=== PATIENT | male | born 1970 | race Caucasian/White ===

== ENCOUNTER → 2017-01-28 | Outpatient (CLI) | payer MEDICAID | LOC: FIMAGING 10:00 | PROVIDERS: ATTEND Psychiatry & Neurology Neurology | DX: Z85.840 Personal history of malignant neoplasm of eye (principal); Z90.01 Acquired absence of eye ==

== ENCOUNTER → 2017-02-13 | Outpatient (CLI) | payer MEDICAID ==
--- NOTE | 2017-02-16 10:28 | CPEEG ---
[f rep st] ELECTROENCEPHALOGRAM FOUR-HOUR VIDEO ELECTROENCEPHALOGRAM. DATE OF STUDY: 02/13/2017 DATE OF INTERPRETATION: 02/16/2017. INTERPRETATION: This 4-hour video EEG recording is normal. There were no potentially epileptogenic abnormalities present during the awake or sleep recordings. During the monitoring session, the pat ient did not have any clinical events. REPORT: This 4-hour video EEG contains 10 Hz alpha to the posterior head regions. There was no abn ormal activation at rest, during photic stimulation, or hyperventilation. The patient became drowsy and fell into sustained sleep during the study. There was no abnormal activation during drowsiness , sleep, or during times of arousal. The patient did not have any clinical events during the video EEG monitoring session. /[id number]/MODL
== END ==
LOC: FCPNEURO 08:56
PROVIDERS: ATTEND Psychiatry & Neurology Neurology
DX: G47.33 Obstructive sleep apnea (adult) (pediatric) (principal); R00.2 Palpitations; R41.0 Disorientation, unspecified

== ENCOUNTER → 2017-04-21 | Outpatient (CLI) | payer MEDICAID | LOC: SBRMNEURO 20:00 | PROVIDERS: ATTEND Psychiatry & Neurology Sleep Medicine | DX: G47.33 Obstructive sleep apnea (adult) (pediatric) (principal) ==